=== PATIENT | male | born 1985 | race Caucasian/White ===

== ENCOUNTER 2016-09-30 21:48 | Emergency (ER) | payer OTHER, BC ==
[~2016-09-30] VITALS: Ht 177.8 cm; Wt 108.5 kg
[2016-09-30 21:52] VITALS: TEMP 36.6; Ht 177.8 cm; Wt 108.5 kg
[2016-09-30] MEDS ORDERED: DEXT1CAP36 PO (22:06)
--- NOTE | 2016-09-30 22:41 | DIAGNOSTIC IMAGING REPORT ---
CT OF THE HEAD WITHOUT CONTRAST CLINICAL HISTORY: Fall. COMPARISON STUDY: No previous studies for comparison. CT DOSE: 773.82 mGy.cm TECHNIQUE: Helical axial images of the head were obtained without IV contrast. Automated exposure control was utilized for the study. FINDINGS: No acute intracranial hemorrhage, midline shift or mass effect is present. Ventricular system is unremarkable. Basilar cisterns are patent. There are no extra-axial collections. Ernandez-white differentiation is maintained. There is mild mucosal thickening of the sinuses. There is no calvarial fracture. IMPRESSION: 1. No acute intracranial findings. 2. No calvarial fracture. Electronically signed by: Radu Marrero M.D. 09/30/2016 10:39 PM Dictated Date/Time: 09/30/2016 10:37 PM
--- NOTE | 2016-09-30 22:43 | DIAGNOSTIC IMAGING REPORT ---
MAXILLOFACIAL CT WITHOUT CONTRAST CLINICAL HISTORY: Fall. COMPARISON STUDY: None. TECHNIQUE: A maxillofacial CT was performed without IV contrast. Coronal and sagittal reformats were viewed. FINDINGS: No acute facial fracture is identified. There is mild mucosal thickening of the sinuses. Alignment of the temporomandibular joints is anatomic. The globes are intact. IMPRESSION: No acute facial fracture. Electronically signed by: Radu Marrero M.D. 09/30/2016 10:42 PM Dictated Date/Time: 09/30/2016 10:39 PM
--- NOTE | 2016-09-30 22:50 | EMERGENCY ROOM VISIT NOTE ---
History Report prepared by Rose: Sara Meza Under the Supervision of: Dr. Rodney Horton D.O. 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 The patient came to the ED via ambulance. He rates his discomfort as a 2-3/10 in severity. He states that he was walking to his car when he fell on ice. He did not experience LOC after falling but after he walked back inside he became lightheaded and experienced syncope. His friend states that the syncope lasted for less than a minute. The patient is experiencing pain in his face with abrasions, but denies neck pain and back pain along with any other pain. The patient thinks that his tetanus shot is up to date. 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 A total of 10 systems reviewed and were otherwise negative. Past Medical & Surgical Surgical Problems: (1) History of hernia repair Family History Cancer Diabetes mellitus Heart disease Hypertension Social History Smoking Status: Never Smoker Alcohol Use: occasionally Marital Status: single Occupation Status: employed Current/Historical Medications Scheduled PRN Dextromethorphan-Phenylephrine (Day Time Multi-Symptom Co), 1 CAP PO DAILY PRN for COUGH & COLD Allergies Coded Allergies: Erythromycin (Verified Adverse Reaction, Mild, vomiting, 09/30/16) Physical Exam Vital Signs Date Time Temp Pulse Resp B/P Pulse Ox O2 Delivery O2 Flow Rate FiO2 09/30/16 23:00 69 16 150/95 96 Room Air 09/30/16 21:52 36.6 88 16 155/108 99 Room Air Physical Exam CONSTITUTIONAL/VITAL SIGNS: Reviewed / noted above. GENERAL: Non-toxic in appearance. INTEGUMENTARY: Warm, dry, and [place]. HEAD: Normocephalic. Abrasion to right maxilla. EYES: without scleral icterus or trauma. ENT/OROPHARYNX: clear and moist. LYMPHADENOPATHY/NECK: Is supple without lymphadenopathy or meningismus. RESPIRATORY: Lungs clear and equal. CARDIOVASCULAR: Regular rate and rhythm. GI/ABDOMEN: Soft and nontender. No organomegaly or pulsatile mass. No rebound or guarding. Normal bowel sounds. EXTREMITIES: Warm and well perfused. Small abrasions to right hand. Bilateral knee contusions. BACK: No CVA tenderness. NEUROLOGICAL: Intact without focal deficits. GCS: 15 PSYCHIATRIC: normal affect. MUSCULOSKELETAL: Normally developed with good muscle tone. Medical Decision & Procedures ER Provider Diagnostic Interpretation: CT results as stated below per my review and radiologist interpretation: CT OF THE HEAD WITHOUT CONTRAST CLINICAL HISTORY: Fall. COMPARISON STUDY: No previous studies for comparison. CT DOSE: 773.82 mGy.cm TECHNIQUE: Helical axial images of the head were obtained without IV contrast. Automated exposure control was utilized for the study. FINDINGS: No acute intracranial hemorrhage, midline shift or mass effect is present. Ventricular system is unremarkable. Basilar cisterns are patent. There are no extra-axial collections. Ernandez-white differentiation is maintained. There is mild mucosal thickening of the sinuses. There is no calvarial fracture. IMPRESSION: 1. No acute intracranial findings. 2. No calvarial fracture. Electronically signed by: Radu Marrero M.D. 09/30/2016 10:39 PM Dictated Date/Time: 09/30/2016 10:[address] WITHOUT CONTRAST CLINICAL HISTORY: Fall. COMPARISON STUDY: None. TECHNIQUE: A maxillofacial CT was performed without IV contrast. Coronal and sagittal reformats were viewed. FINDINGS: No acute facial fracture is identified. There is mild mucosal thickening of the sinuses. Alignment of the temporomandibular joints is anatomic. The globes are intact. IMPRESSION: No acute facial fracture. Electronically signed by: Radu Marrero M.D. 09/30/2016 10:42 PM Dictated Date/Time: 09/30/2016 10:39 PM ED Course 2150: Previous medical records were reviewed. The patient was evaluated in room B4. A complete history and physical examination was performed. 2239: I reassessed the patient. I also informed him that we are just waiting on his CT scans to be read. 1051: On reevaluation, the patient is doing well. I discussed the results and findings with the patient. He verbalized agreement of the treatment plan. He was discharged home. Medical Decision Differential includes close head injury, intracranial bleed, facial trauma, cervical spine trauma, chest and thoracic trauma, abdominal and intra-abdominal trauma, spine neurologic trauma, extremity trauma. This is a 31-year-old male who presents to the ED with a chief complaint of facial pain after a fall. The patient slipped on the ice while he was walking on the sidewalk towards his patrol car. The patient was at work at the time of the incident. The patient fell onto his knees and face causing an abrasion to the right maxillary area as well as some contusions to the knees and abrasions to the right hand. The patient's vital signs are stable. His physical exam reveals a moderate abrasion on the right maxilla. Other details listed above. The patient went into the [employer] headquarters and had a brief syncopal episode. There was no seizure activity. He was brought here for evaluation. The patient's CT scan of the brain and face did not show any acute abnormality. His wounds were assessed and there was no need for suturing. His tetanus shot is up-to-date. He is felt to be stable for discharge and outpatient follow-up. Basic wound care instructions provided. Impression Primary Impression: Fall Additional Impression: Abrasion of face Scribe Attestation The scribe's documentation has been prepared under my direction and personally reviewed by me in its entirety. I confirm that the note above accurately reflects all work, treatment, procedures, and medical decision making performed by me. Departure Information Dispostion Home / Self-Care Referrals No Doctor, Assigned (PCP) Forms HOME CARE DOCUMENTATION FORM, IMPORTANT VISIT INFORMATION Patient Instructions A Signature Page, Care Wound, My [facility] Additional Instructions The CAT scan of your head and face did not show any fractures or intracranial bleeding. Watch wounds for infection. Apply small amount of topical antibiotic/Neosporin to the wounds periodically over the next several days. Wounds should heal within 2 weeks. Scarring is possible with any skin injury. Problem Qualifiers Primary Impression: Fall Encounter type: initial encounter Qualified Codes: W19.XXXA - Unspecified fall, initial encounter Additional Impression: Abrasion of face Encounter type: initial encounter Qualified Codes: S00.81XA - Abrasion of other part of head, initial encounter
[2016-09-30 23:00] VITALS: BP 150/95; PULSE 69; O2SAT 96
== END 2016-09-30 23:01 | disposition home or self-care (01) ==
LOC: EDBD 21:48 → C.EDB 21:52
DX: S00.81XA Abrasion of other part of head, initial encounter (principal); W01.0XXA Fall on same level from slipping, tripping and stumbling without subsequent striking against object, initial encounter; Z98.890 Other specified postprocedural states; Z88.3 Allergy status to other anti-infective agents; Z80.9 Family history of malignant neoplasm, unspecified; Z83.3 Family history of diabetes mellitus; Z82.49 Family history of ischemic heart disease and other diseases of the circulatory system